=== PATIENT | male | born 1970 | race Caucasian/White ===

== ENCOUNTER 2016-06-10 23:23 | Emergency (ER) | payer OTHER | END 2016-06-11 01:13 | disposition home or self-care (01) | LOC: ER 23:23 | DX: R60.0 Localized edema (principal); Z79.899 Other long term (current) drug therapy; F17.210 Nicotine dependence, cigarettes, uncomplicated | CPT/HCPCS: 36415; 80053; 83880; 85025; 85610; 85730; 93971 ==